=== PATIENT | male | born 2000 | race Caucasian/White ===

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

== ENCOUNTER 2022-04-12 17:49 | Emergency (ER) | payer BC, SELFPAY ==
[2022-04-12 18:04] VITALS: BP 151/95; PULSE 90; RESP 18; TEMP 36.6; O2SAT 94; BMI 31.1
[2022-04-12 18:14] VITALS: BP 138/80; PULSE 95; RESP 18; O2SAT 99
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
[2022-04-12 20:42] VITALS: BP 153/86; PULSE 84; O2SAT 99
== END 2022-04-12 20:35 | disposition home or self-care (01) ==
PROVIDERS: Emergency Provider Nurse Practitioner Family
DX: S46.912A Strain of unspecified muscle, fascia and tendon at shoulder and upper arm level, left arm, initial encounter (principal); T24.201A Burn of second degree of unspecified site of right lower limb, except ankle and foot, initial encounter; V43.52XA Car driver injured in collision with other type car in traffic accident, initial encounter
CPT/HCPCS: 72040; 73030; 73110; 99283

== ENCOUNTER 2022-04-20 17:30 | Emergency (ER) | payer BC, SELFPAY ==
[2022-04-20 17:36] VITALS: BP 142/90; PULSE 86; RESP 16; TEMP 36.6; O2SAT 98
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
[2022-04-20] MEDS: amoxicillin-clav 875-125 mg Tablet 1 TAB PO (19:51)
== END 2022-04-20 19:58 | disposition home or self-care (01) ==
PROVIDERS: Emergency Provider Nurse Practitioner Family
DX: T24.201A Burn of second degree of unspecified site of right lower limb, except ankle and foot, initial encounter (principal); T31.0 Burns involving less than 10% of body surface; X08.8XXA Exposure to other specified smoke, fire and flames, initial encounter
CPT/HCPCS: 99283

== ENCOUNTER 2022-06-09 05:14 | Emergency (ER) | payer BC, SELFPAY ==
[2022-06-09 05:25] VITALS: BP 144/85; PULSE 68; RESP 20; TEMP 36.7; O2SAT 97; BMI 32.5
--- NOTE | 2022-06-09 06:01 | XRR_ITS ---
PROCEDURE INFORMATION: Exam: XR Chest Exam date and time: 06/09/2022 6:09 AM Age: 21 years old Clinical indication: Cough and dyspnea; Additional info: Dyspnea/cough TECHNIQUE: Imaging protocol: Radiologic exam of the chest. Views: 1 view. COMPARISON: CR XR shoulder LT min 2V* [id number] 04/12/2022 7:16 PM FINDINGS: Lungs: Unremarkable. No consolidation. Pleural spaces: Unremarkable. No pleural effusion. No pneumothorax. Heart/Mediastinum: Unremarkable. No cardiomegaly. Bones/joints: Unremarkable. XR/XR chest 1V portable [id number] IMPRESSION: No acute findings.
--- NOTE | 2022-06-09 06:03 | W.ED.COVID ---
HPI - COVID General: Chief Complaint: COVID symptoms Stated Complaint: Fever\Coughing\N\Diahrea Time Seen by Provider: 06/09/22 06:01 Source: patient Mode of arrival: ambulatory Triage information: Has fever, cough or shortness of breath. Exposure to COVID + person last 14 days History of Present Illness: 21-year-old male presents emergency room with cough congestion fever headache for with nausea and diarrhea the last 2 days. Fever began yesterday. Cough is been nonproductive. He had known COVID exposure. MD complaint: has COVID symptoms Prior covid testing: no COVID 19 common symptoms: positive fever(s), chills, cough, non-productive cough, fatigue, body aches, headache(s), nausea, vomiting and diarrhea; negative productive cough, dyspnea, throat pain or nasal congestion COVID 19 other sytmptoms: negative chest pain, requiring oxygen or respiratory distress Onset (ago): day(s) (3) Severity: mild Treatment prior to arrival: none COVID Results: SARS-CoV-2 (PCR) Pending 06/09/22 06:12 06/09/22 Coronavirus Type 229E (PCR) Pending 06/09/22 06:12 06/09/22 Review of Systems Const: Reports: fever(s), chills, body aches, fatigue and malaise ENMT: Denies: throat pain, ear or mastoid pain, nasal discharge or nasal congestion Card: Denies: chest pain, edema, dyspnea on exertion or orthopnea Resp: Reports: non-productive cough; Denies: dyspnea or productive cough GI: Reports: nausea, vomiting and diarrhea; Denies: abdominal pain, hematemesis, coffee ground emesis, constipation, bloating, hematochezia or melena : Denies: flank pain, difficulty urinating, dysuria, urinary frequency or urinary urgency Skin/Breast: Denies: rash or pruritus Neuro: Reports: headache(s) PFSH ED PFSH: Medical History (Updated 06/09/22 @ 06:15 by López Dinero DO) No significant past medical history Surgical History (Updated 06/09/22 @ 06:05 by López Dinero DO) No significant past surgical history Family History Father Alcoholism Other Diabetes Social History Smoking and tobacco status: current every day smoker Alcohol intake: current Physical Exam Const: GENERAL APPEARANCE: cooperative and comfortable ORIENTATION/CONSCIOUSNESS: Yes awake, Yes oriented to person, Yes oriented to place and Yes oriented to time HENMT: COMMON NORMALS: normocephalic, atraumatic and hearing grossly normal bilaterally HEAD & SCALP: normocephalic and atraumatic Neck/C-Spine: COMMON NORMALS: no JVD Resp: COMMON NORMALS: normal respiratory effort, No retractions, No use of accessory muscles and clear to auscultation bilaterally AUSCULTATION: clear to auscultation bilaterally Cardio: COMMON NORMALS: no JVD, regular rate, regular rhythm and No murmurs present (Cardio) RATE: regular rate RHYTHM: regular rhythm GI: COMMON NORMALS: Soft to palpation and No hepatosplenomegaly present AUSCULTATION: Yes normoactive bowel sounds PALPATION: Yes Soft to palpation, No Tenderness to palpation present (GI), No Guarding due to palpation present (GI) and Yes No hepatosplenomegaly present Extremity: COMMON NORMALS: normal to inspection, capillary refill normal, no clubbing, cyanosis or edema, no calf tenderness and no pedal edema Neuro: SENSORIUM/ORIENTATION: Yes oriented to person, Yes oriented to place and Yes oriented to time Skin: COMMON NORMALS: no rashes or lesions noted GENERAL SKIN EXAM: no rashes or lesions noted Course Vital Signs: Vital signs: Vital Signs Temperature 98.0 F 06/09/22 05:25 Pulse Rate 68 06/09/22 05:25 Respiratory Rate 20 H 06/09/22 05:25 Blood Pressure 144/85 06/09/22 05:25 Pulse Oximetry 97 06/09/22 05:25 MDM - COVID Medical Decision Making COVID swab done we will contact patient with results recommend maintaining self quarantine till results are available. Chest x-ray unremarkable Medical Records I reviewed the patient's medical records. Lab Data I reviewed the patient's lab results. SARS-CoV-2 (PCR) Pending 06/09/22 06:12 06/09/22 Coronavirus Type 229E (PCR) Pending 06/09/22 06:12 06/09/22 Discharge Plan Discharge Patient Disposition: Home Clinical Impression: Suspected 2019-nCoV infection Condition: Stable Prescriptions: No Action amoxicillin-pot clavulanate 875-125 mg tablet 1 tab PO BID Qty: 14 0RF ibuprofen 600 mg tablet 600 mg PO Q6H PRN (Reason: pain) Qty: 30 0RF bacitracin 500 unit/gram ointment 1 applic topical BID Qty: 28.4 0RF Rx Instructions: twice daily to wound until healed Discharge Orders: Discharge ED (Routine); Ordered 06/09/22 Ordered By: López Dinero Patient Instructions: COVID-19 (Coronavirus Disease 2019) (ED), Opioid Safety Activity Restrictions/Additional Instructions: You are tested for COVID-19. Do suspect you may have the virus recommend self quarantine until we call with results. If symptoms worsen significantly return to the emergency room. Coding Level of Care Code ED Power Transformer Inspector for Felisha Fwkhushi Exam Comprehensive
[2022-06-09 06:24] VITALS: RESP 16
[2022-06-09 07:58] LABS: Adenovirus Not Detected (NOT DETECT); Chlamydia Pneumoniae Not Detected (NOT DETECT); Coronavirus 229E,HKU1,NL63,OC4 Not Detected (NOT DETECT); Human Metapneumovirus Not Detected (NOT DETECT); Human Rhinovirus/Enterovirus Not Detected (NOT DETECT); Influenza A Not Detected (NOT DETECT); Influenza A H1 Not Detected (NOT DETECT); Influenza A H1-2009 Not Detected (NOT DETECT); Influenza A H3 Not Detected (NOT DETECT); Influenza B Not Detected (NOT DETECT); Mycoplasma Pneumoniae Not Detected (NOT DETECT); Parainfluenza Virus Type 1 Not Detected (NOT DETECT); Parainfluenza Virus Type 2 Not Detected (NOT DETECT); Parainfluenza Virus Type 3 Not Detected (NOT DETECT); Parainfluenza Virus Type 4 Not Detected (NOT DETECT); Respiratory Syncytial Virus A Not Detected (NOT DETECT); Respiratory Syncytial Virus B Not Detected (NOT DETECT); SARS-COV-2 Detected (NOT DETECT)
== END 2022-06-09 06:24 | disposition home or self-care (01) ==
PROVIDERS: Emergency Provider Family Medicine
DX: U07.1 COVID-19 (principal); F17.210 Nicotine dependence, cigarettes, uncomplicated
CPT/HCPCS: 71045; 87635; 99284

== ENCOUNTER 2024-12-10 19:01 | Emergency (ER) | payer BC, SELFPAY ==
[2024-12-10 19:09] VITALS: BP 138/69; PULSE 119; TEMP 36.4; O2SAT 99; BMI 35.9
--- NOTE | 2024-12-10 19:17 | ED_ITS ---
HPI - Seizure 2 General: Chief Complaint: Seizure Stated Complaint: seizure Time Seen by Provider: 12/10/24 19:06 History of Present Illness: HPI Narrative: 24-year-old male with a history of traum atic brain injury who presents emergency room after having a possible seizure. He presents by ambulance. He is alert and at his baseline. Mom says the episode lasted about 2 minutes. No obvious postictal state. He had some seizures while in the hospital after surgery but has not had any since and it has been about a year. He is not on any seizure medications. He appears to be back at his baseline here. Related Data Previous Rx's Medication Instructions Recorded bacitracin 500 unit/gram topical 1 applic topical BID #28.4 grams 04/12/22 ointment ibuprofen 600 mg tablet 600 mg PO Q6H PRN pain #30 tabs 04/12/22 amoxicillin 875 mg-potassium 1 tab PO BID #14 tabs 04/20/22 clavulanate 125 mg tablet Allergies Allergy/AdvReac Type Severity Reaction Status Date / Time No Known Allergies Allergy Unverified 04/20/22 17:39 Review of Systems 2 Narrative: Constitutional symptoms: Negative except as documented in HPI. Skin symptoms: Negative except as documented in HPI. Eye symptoms: Negative except as documented in HPI. ENMT symptoms: Negative except as documented in HPI. Respiratory symptoms: Negative except as documented in HPI. Cardiovascular symptoms: Negative except as documented in HPI. Gastrointestinal symptoms: Negative except as documented in HPI. Genitourinary symptoms: Negative except as documented in HPI. Musculoskeletal symptoms: Negative except as documented in HPI. Neurologic symptoms: Negative except as documented in HPI. Psychiatric symptoms: Negative except as documented in HPI. Endocrine symptoms: Negative except as documented in HPI. PFSH ED 2 PFSH: Medical History (Updated 12/10/24 @ 20:11 by Romy Casey MD) No significant past medical history Surgical History (Updated 06/09/22 @ 06:05 by López Dinero DO) No significant past surgical history Family History Father Alcoholism Other Diabetes Social History Smoking and tobacco/nicotine status: current every day tobacco/nicotine user Alcohol intake: current Substance/Drug Use: current Physical Exam 2 Narrative: EXAM NARRATIVE: General: Alert, no acute distress. Skin: Warm, dry. Head: Normocephalic, atraumatic. Neck: Supple, trachea midline. Eye: Extraocular movements are intact. Ears, nose, mouth and throat: mucosa moist. Cardiovascular: Regular, Normal peripheral perfusion. Respiratory: Lungs are clear to auscultation, respirations are non-labored, breath sounds are equal, Symmetrical chest wall expansion. Gastrointestinal: Soft, Nontender, Non distended Musculoskeletal: Normal ROM, no deformity. Neurological: Alert and oriented, No focal neurological deficit observed. Psychiatric: Odd affect Course 2 Vital Signs: Vital signs: Vital Signs Temperature 97.6 F 12/10/24 19:09 Pulse Rate 89 12/10/24 20:47 Blood Pressure 125/64 12/10/24 20:47 Pulse Oximetry 97 12/10/24 20:47 Oxygen Delivery Me thod Room Air 12/10/24 19:09 MDM - Seizure Lab Data 12/10/24 19:37 12/10/24 19:37 Labs: Radiology Impressions Head CT 12/10/24 19:20 IMPRESSION: 1. No acute hemorrhage or acute process noted. 2. Postop and chronic findings with known history of previous TBI. Laboratory Results WBC 9.19 10^3/uL (3.29-11.43) 12/10/24 19:37 RBC 4.98 10^6/uL (3.85-5.65) 12/10/24 19:37 Hgb 11.60 g/dL (11.27-16.99) 12/10/24 19:37 Hct 37.9 % (37-53) 12/10/24 19:37 MCV 76.1 fl (82-101) L 12/10/24 19:37 MCH 23.3 pg (27-33) L 12/10/24 19:37 MCHC 30.6 g/dL (30-55) 12/10/24 19:37 RDW 16.2 % (12.1-15.1) H 12/10/24 19:37 Plt Count 383 10^3/cmm (157-399) 12/10/24 19:37 MPV 9.4 fL (7.4-10.4) 12/10/24 19:37 Neut % (Auto) 75.3 % 12/10/24 19:37 Lymph % (Auto) 16.2 % 12/10/24 19:37 [place] % (Auto) 6.7 % 12/10/24 19:37 Eos % (Auto) 0.9 % 12/10/24 19:37 Baso % (Auto) 0.7 % 12/10/24 19:37 Neut # (Auto) 6.92 10^3/uL (1.8-7.7) 12/10/24 19:37 Lymph # (Auto) 1.5 10^3/uL (0.8-4.8) 12/10/24 19:37 [place] # (Auto) 0.6 10^3/uL (0.2-0.9) 12/10/24 19:37 Eos # (Auto) 0.1 10^3/uL (0.0-0.8) 12/10/24 19:37 Baso # (Auto) 0.1 10^3/uL (0.0-0.1) 12/10/24 19:37 Nucleated RBC % (auto) 0 % 12/10/24 19:37 Nucleated RBCs # 0.0 /100WBC 12/10/24 19:37 Sodium 141 mmol/L (136-145) 12/10/24 19:37 Potassium 3.8 mmol/L (3.5-5.1) 12/10/24 19:37 Chloride 104 mmol/L (98-107) 12/10/24 19:37 Carbon Dioxide 25 mmol/L (22-29) 12/10/24 19:37 Anion Gap 15.8 (5-19) 12/10/24 19:37 BUN 17 mg/dL (6-20) 12/10/24 19:37 Creatinine 0.8 mg/dL (0.7-1.2) 12/10/24 19:37 GFR Calculation 120.9 mL/min (90-130) 12/10/24 19:37 Glucose 92 mg/dL (65-115) 12/10/24 19:37 Calculated Osmolality 293 mOsm/kg (285-295) 12/10/24 19:37 Lactic Acid 1.5 mmol/L (0.5-2.2) 12/10/24 19:37 Calcium 9.7 mg/dL (8.5-10.5) 12/10/24 19:37 Total Bilirubin 0.3 mg/dL (0.15-1.2) 12/10/24 19:37 AST 26 U/L (0-40) 12/10/24 19:37 ALT 47 U/L (0-41) H 12/10/24 19:37 Alkaline Phosphatase 101 U/L (40-130) 12/10/24 19:37 Creatine Kinase 243 U/L (39-308) 12/10/24 19:37 Total Protein 7.7 g/dL (6.6-8.7) 12/10/24 19:37 Albumin 4.6 g/dL (3.5-5.2) 12/10/24 19:37 Globulin 3.1 g/dL (1.3-4.6) 12/10/24 19:37 Urine Color Yellow (Yellow) 12/10/24 19:28 Urine Appearance Clear (CLEAR) 12/10/24 19: Urine pH 5.0 (5-7) 12/10/24 19:28 Ur Specific [place] 1.029 (1.005-1.030) 12/10/24 19:28 Urine Protein 1+ (Negative) A 12/10/24 19: Urine Glucose (UA) Negative (Normal) 12/10/24 19: Urine Ketones 1+ (Negative) H 12/10/24 19:28 Urine Blood Negative (Negative) 12/10/24 19: Urine Nitrate Negative (Negative) 12/10/24 19: Urine Bilirubin Negative (Negative) 12/10/24 19: Urine Urobilinogen 0.2 mg/dL (Negative) 12/10/24 19:28 Ur Leukocyte Esterase Negative (Negative) 12/10/24 19:28 Urine RBC 0-2 /hpf (0-2) 12/10/24 19:28 Urine WBC 0-5 /hpf (0-5) 12/10/24 19: Ur Squamous Epith Cells 0-5 /hpf (0-5) 12/10/24 19:28 Amorphous Sediment Not Reportable 12/10/24 19:28 Urine Bacteria None seen /hpf (NONE) 12/10/24 19: Hyaline Casts 0-4 /lpf H 12/10/24 19:28 All radiology interpretation(s) finalized by discharge ED provider radiology interpretation(s): Medical decision making: Differential diagnosis for this patient with a complaint of seizure like activity would include but not be limited to, and based on the above HPI, review of systems and physical exam: seizure, DT's, alcohol withdrawal, brain malignancy, pseudo-seizure, syncope. Orders placed to evaluate differential diagnosis based on the above differential, HPI and physical exam CT head: No acute intracranial process. no intracranial hemorrhage, no evidence of infarct. no evidence of acute fracture.This was reviewed and interpreted by myself the ER physician. Lab Review: Laboratory results were reviewed and interpreted by myself the emergency room physician Lab work is unremarkable I reviewed the patient's medical record. Reexamination: Patient has had no seizure recurrence. No variation of his normal mentation. Mom is okay taking him home. Assessment and plan: Seizure-like activity - Discharged home - Discussed plan with patient. Answered any questions. - Evaluation and treatment of this problem were appropriate in the emergency setting. Discharge Plan Discharge Patient Disposition: Home Clinical Impression: Seizure-like activity, History of traumatic brain injury Condition: Stable Prescriptions: No Action amoxicillin-pot clavulanate 875-125 mg tablet 1 tab PO BID Qty: 14 0RF ibuprofen 600 mg tablet 600 mg PO Q6H PRN (Reason: pain) Qty: 30 0RF bacitracin 500 unit/gram ointment 1 applic topical BID Qty: 28.4 0RF Rx Instructions: twice daily to wound until healed Discharge Orders: Discharge ED (Routine); Ordered 12/10/24 Ordered By: Romy Casey Referrals: Horacio Kenney MD [Physician] - (Please follow with your primary care provider and/or neurology concerning possible seizure-like activity.) Discharge Diet: Usual diet Discharge Activity: Increase activity as tolerated Patient Instructions: New-Onset Seizure in Adults (ED), Opioid Safety, Pain Management Activity Restrictions/Additional Instructions: Thank you for choosing [facility] for your healthcare needs today. Please realize this is an emergency room and that we are providing you with a medical screening exam and this may not be complete and all inclusive of all the testing and or work up that you may need to determine your ailment or severity of your illness. You have been screened and evaluated and felt safe for discharge. Health conditions do change or evolve sometimes and as such it is important that you follow up with your Primary Doctor to be re checked, 3-5 days is a general good time frame for follow up. You are always welcome to return to the ED for re assessment if your symptoms are worsening or you have new concerns Coding Level of Care Code ED Single Pass [employer] Operator for Felisha Gay
--- NOTE | 2024-12-10 19:20 | CTR_ITS ---
PROCEDURE INFORMATION: Exam: CT Head Without Contrast Exam date and time: 12/10/2024 7:40 PM Age: 24 years old Clinical indication: Other: Seizure; Prior surgery; Surgery date: 6+ months; Surgery type: Brain; Additional info: Seizure, history of tbi TECHNIQUE: Imaging protocol: Computed tomography of the head without contrast. Radiation optimization: All CT scans at this facility use at least one of these dose optimization techniques: automated exposure control; mA and/or kV adjustment per patient size (includes targeted exams where dose is matched to clinical indication); or iterative reconstruction. COMPARISON: CR XR cervical spine 3V* [id number] 04/12/2022 7:09 PM RADIATION DOSE METRICS: Total DLP (mGy-cm): 1253.998 FINDINGS: Brain: No focal hemorrhage or midline shift. Right frontal shunt present with tip at right frontal horn. Previous left-sided hemispheric craniotomy. Prominent left frontal encephalomalacia. Minimal right frontal encephalomalacia. Tiny amount of left extra-axial scarring/thickening. Cerebral ventricles: No ventriculomegaly or evidence of acute hydrocephalus. Paranasal sinuses: The partially assessed sinuses are grossly clear. Mastoid air cells: Visualized mastoid air cells are well aerated. Bones: See Brain finding. Old left facial deformity. Soft tissues: Unremarkable. CT/CT head wo con* [id number] IMPRESSION: 1. No acute hemorrhage or acute process noted. 2. Postop and chronic findings with known history of previous TBI.
[2024-12-10 19:46] LABS: Basophils # 0.1 10^3/uL (0.0-0.1); Basophils % 0.7 %; Eosinophils # 0.1 10^3/uL (0.0-0.8); Eosinophils % 0.9 %; Hematocrit 37.9 % (37-53); Lymphocytes # 1.5 10^3/uL (0.8-4.8); Lymphocytes % 16.2 %; Mean Corpuscular HGB Conc 30.6 g/dL (30-55); Mean Corpuscular Hemoglobin 23.3 pg (27-33); Mean Corpuscular Volume 76.1 fl (82-101); Mean Platelet Volume 9.4 fL (7.4-10.4); Monocytes # 0.6 10^3/uL (0.2-0.9); Monocytes % 6.7 %; Neutrophils # 6.92 10^3/uL (1.8-7.7); Neutrophils % 75.3 %; Nucleated Red Blood Cells % 0 %; Platelet Count 383 10^3/cmm (157-399); Red Blood Count 4.98 10^6/uL (3.85-5.65); Red Cell Distribution Width 16.2 % (12.1-15.1); White Blood Count 9.19 10^3/uL (3.29-11.43)
[2024-12-10 19:51] LABS: Bilirubin Urine Negative (Negative); Blood Urine Negative (Negative); Glucose Urine UA Negative (Normal); Ketones Urine 1+ (Negative); Leukocyte Esterase Urine Negative (Negative); Nitrate Urine Negative (Negative); Protein Urine 1+ (Negative); Specific Gravity, Urine 1.029 (1.005-1.030); Urine Appearance Clear (CLEAR); Urine Color Yellow (Yellow); Urobilinogen Urine 0.2 mg/dL (Negative)
[2024-12-10 19:54] LABS: Bacteria Urine None Seen /hpf; Hyaline Casts Urine 0-4 /lpf; RBC Urine 0-2 /hpf (0-2); Squamous Epithelial Cell Urine 0-5 /hpf (0-5); WBC Urine 0-5 /hpf (0-5)
[2024-12-10 20:05] LABS: Alanine Aminotransferase 47 U/L (0-41); Albumin Level 4.6 g/dL (3.5-5.2); Alkaline Phosphatase 101 U/L (40-130); Anion Gap 15.8 (5-19); Aspartate Amino Transferase 26 U/L (0-40); Blood Urea Nitrogen 17 mg/dL (6-20); Calcium 9.7 mg/dL (8.5-10.5); Carbon Dioxide 25 mmol/L (22-29); Chloride 104 mmol/L (98-107); Creatine Phosphokinase 243 U/L (39-308); Creatinine Clr Calc Pharmacy 193.8822; Globulin 3.1 g/dL (1.3-4.6); Glomerular Filtration Rate 120.9 mL/min (90-130); Glucose 92 mg/dL (65-115); Osmolality Calculated 293 mOsm/kg (285-295); Potassium 3.8 mmol/L (3.5-5.1); Sodium 141 mmol/L (136-145); Total Bilirubin 0.3 mg/dL (0.15-1.2); Total Protein 7.7 g/dL (6.6-8.7)
[2024-12-10 20:06] LABS: Lactic Sepsis W/Reflex 1.5 mmol/L (0.5-2.2)
[2024-12-10 20:47] VITALS: BP 125/64; PULSE 89; O2SAT 97
== END 2024-12-10 20:40 | disposition home or self-care (01) ==
PROVIDERS: Emergency Provider Emergency Medicine
DX: R56.9 Unspecified convulsions (principal); Z87.820 Personal history of traumatic brain injury; Z72.0 Tobacco use
CPT/HCPCS: 70450; 80053; 81001; 82550; 83605; 85025; 99284